=== PATIENT | male | born 1965 | race Caucasian/White ===

== ENCOUNTER 2025-02-21 20:52 | Inpatient (IN) | payer MEDICAID, OTHER ==
[~2025-02-21] VITALS: Ht 176.5 cm; Wt 103.1 kg
[2025-02-21 20:58] VITALS: PULSE 59; RESP 15; O2SAT 98
[2025-02-21] MEDS: CLOPIDOGREL BISULFATE 75 MG TAB PO ONE (21:07)
[2025-02-21] MEDS: ASPirin 325 MG TAB PO ONE (21:07)
[2025-02-21] MEDS: HEPARIN SODIUM (PORCINE) 5000 UNITS/ML 1ML VIAL IV ONE ×2 (21:07→21:15)
--- NOTE | 2025-02-21 21:07 | ED.PDOC ---
HPI Comments 59-year-old male with no reported PMHx brought in by EMS presents with a chief complaint of STEMI. Per EMS, patient was sitting playing poker with friends when he had sudden onset of diaphoresis, paleness, and lethargy. Patient states that he then also had left sided chest pain that radiated to his back, left shoulder, and down his left arm. Patient describes pain as sharp/heaviness that he rates a 10/10. EMS gave patient 324 ASA and also did a 12-lead EKG that showed STEMI. Patient arrived at ER and had an initial EKG that showed ST elevation and depressions which was then sent to on-call STEMI doctor whom confirmed that it was a CODE STEMI. Patient is alert at this time and able to speak in full complete sentences at this time. Chief Complaint: Chest Pain Time Seen by MD: 20:51 Reviewed Notes: General Claims Agent Notes, Medications, Allergies Allergies: Coded Allergies: NO KNOWN ALLERGIES (Unverified , 02/21/25) Home Meds No Active Prescriptions or Reported Meds Information Source: Patient, Emergency Med Personnel Mode of Arrival: EMS Severity: Moderate Timing: Minutes Duration: Since onset Prehospital treatment: 12 Lead EKG, ASA Location: Chest (L) Radiation: Back, Shoulder (L), Arm (L) Quality: Sharp Onset: At Rest Cardiac Risk Factors: Family History PE Risk Factors: None History of: None Associated Signs and Symptoms: Diaphoresis Past Medical History PAST MEDICAL HISTORY: Denies Surgical History: Denies all surgeries Family History Family History: Reviewed,noncontributory to illness Social History Smoker: Non-Smoker Alcohol: Occasionally Drugs: Denies Drug Use Lives In: Home Constitutional: reports: sweats, others (LETHARGY); denies: chills, diaphoresis, fatigue, fever, malaise, weakness EENTM: denies: blurred vision, double vision, ear bleeding, ear discharge, ear drainage, ear pain, ear ringing, eye pain, eye redness, hearing loss, mouth pain, mouth swelling, nasal discharge, nose bleeding, nose congestion, nose pain, photophobia, tearing, throat pain, throat swelling, voice changes, others Respiratory: denies: cough, hemoptysis, orthopnea, SOB at rest, shortness of breath, SOB with excertion, stridor, wheezing, others Cardiovascular: reports: chest pain, diaphoresis; denies: dizzy spells, Dyspnea on exertion, edema, irregular heart beat, left arm pain, lightheadedness, palpitations, PND, syncope, others Gastrointestinal: denies: abdomen distended, abdominal pain, blood streaked bowels, constipated, diarrhea, dysphagia, difficulty swallowing, hematemesis, melena, nausea, poor appetite, poor fluid intake, rectal bleeding, rectal pain, vomiting, others Genitourinary: denies: burning, dysuria, flank pain, frequency, hematuria, incontinence, penile discharge, penile sore, pain, testicle pain, testicle swelling, urgency, others Neurological: denies: dizziness, fainting, headache, left sided numbness, left sided weakness, numbness, paresthesia, pre-existing deficit, right sided numbness, right sided weakness, seizure, speech problems, tingling, tremors, weakness, others Musculoskeletal: denies: back pain, gout, joint pain, joint swelling, muscle pain, muscle stiffness, neck pain, others Integumetry: denies: bruises, change in color, change in hair/nails, dryness, laceration, lesions, lumps, rash, wounds, others Allergic/Immunocompromised: denies: Difficulty Healing, Frequent Infections, Hives, Itching, others Hematologic/Lymphatic: denies: anemia, blood clots, easy bleeding, easy bruising, swollen glands, others Endocrine: denies: excessive hunger, excessive sweating, excessive thirst, excessive urination, flushing, intolerance to cold, intolerance to heat, unexplained weight gain, unexplained weight loss, others Psychiatric: denies: anxiety, bipolar disorder, depression, hopeless, panic disorder, schizophrenia, sleepless, suicidal, others All Other Systems: Reviewed and Negative Physical Exam General Appearance: No Apparent Distress, Normal HEENT: Normal ENT Inspection, Pharynx Normal, TMs Normal Neck: Full Range of Motion, Non-Tender, Normal, Normal Inspection Respiratory: Chest Non-Tender, Lungs Clear, No Accessory Muscle Use, No Respi ratory Distress, Normal Breath Sounds Cardiovascular: No Edema, No JVD, No Murmur, No Gallop, Normal Peripheral Pulses, Regular Rate/Rhythm Breast Exam: Deferred Gastrointestinal: No Organomegaly, Non Tender, No Pulsatile Mass, Normal Bowel Sounds, Soft Genitalia: Deferred Pelvic: Deferred Rectal: Deferred Extremities: No calf tenderness, Normal capillary refill, Normal inspection, Normal range of motion, Non-tender, No pedal edema Musculoskeletal : Apperance: Normal Neurologic: Alert, drywall sprayer II-XII nml as Tested, No Motor Deficits, Normal Affect, Normal Mood, No Sensory Deficits Cerebellar Function: Normal Reflexes: Normal Skin: Dry, Normal Color, Warm Lymphatic: No Adenopathy Was a procedure done? Was a procedure done?: No CP Differential Dx Differential Diagnosis: A-fib, A-Flutter, Electrolyte Disorder, MAT, AR, Renal Failure, Torsades De Pointes, Ventricular Dysrhythmia, V-Fib, Other X-Ray, Labs, Meds, VS Vital Signs Date Time Temp Pulse Resp B/P (MAP) Pulse Ox O2 Delivery O2 Flow Rate FiO2 02/21/25 21:06 59 02/21/25 20:58 59 02/21/25 20:58 98.1 59 15 149/75 (99) 98 98.1 02/21/25 20:58 59 15 98 Nasal Cannula* 2 28 02/21/25 20:52 98.1 59 16 144/78 (100) 97 98.1 Lab Test 02/21/25 20:59 Range/Units White Blood Count 12.6 H 4.4-10.8 10^3/uL Red Blood Count 4.82 4.5-5.90 10^6/uL Hemoglobin 14.7 13.5-17.5 g/dL Hematocrit 45.5 41.0-53.0 % Mean Corpuscular Volume 94.3 80.0-100.0 fL Mean Corpuscular Hemoglobin 30.5 28.0-32.0 pg Mean Corpuscular Hemoglobin Concent 32.3 32.0-36.0 g/dL Red Cell Distribution Width 14.8 H 11.8-14.3 % Platelet Count 284 140-450 10^3/uL Mean Platelet Volume 7.8 6.9-10.8 fL Neutrophils (%) (Auto) 67.7 37.0-80.0 % Lymphocytes (%) (Auto) 19.9 10.0-50.0 % Monocytes (%) (Auto) 9.0 0.0-12.0 % Eosinophils (%) (Auto) 2.4 0.0-7.0 % Basophils (%) (Auto) 1.0 0.0-2.0 % Neutrophils # (Auto) 8.6 1.6-8.6 10 ^3/uL Lymphocytes # (Auto) 2.5 0.4-5.4 10 ^3/uL Monocytes # (Auto) 1.1 0-1.3 10 ^3/uL Eosinophils # (Auto) 0.3 0-0.8 10 ^3/uL Basophils # (Auto) 0.1 0-0.2 10 ^3/uL Nucleated Red Blood Cells 0.1 % Prothrombin Time 11.4 9.3-11.8 sec Prothrombin Time INR 1.08 0.9-1.15 Activated Partial Thromboplast Time 24.0 L 24.5-34.5 SEC Sodium Level 140 136-145 mmol/L Potassium Level 3.5 3.5-5.1 mmol/L Chloride Level 107 98-107 mmol/L Carbon Dioxide Level 25 20-31 mmol/L Anion Gap 8 5-15 Blood Urea Nitrogen 17 9-23 mg/dL Creatinine 1.16 0.700-1.30 mg/dL Glomerular Filtration Rate Calc 72 >90 mL/min BUN/Creatinine Ratio 14.7 10.0-20.0 Serum Glucose 136 H 74-106 mg/dL Calcium Level 10.4 8.7-10.4 mg/dL Magnesium Level 2.0 1.6-2.6 mg/dL Total Bilirubin 0.3 0.2-1.0 mg/dL Aspartate Amino Transferase (AST) 16 13-40 U/L Alanine Aminotransferase (ALT) 19 7-40 U/L Alkaline Phosphatase 105 46-116 U/L Troponin I High Sensitivity 161 *H </=54 ng/L Total Protein 7.5 5.7-8.2 g/dL Albumin 4.8 3.2-4.8 g/dL Current Medications Medications (Trade) Dose Ordered Sig/Philip Route Start Time Stop Time Status Last Admin Heparin Sodium (Porcine) 5,000 units ONCE ONCE IV 02/21/25 21:15 02/21/25 21:16 DC 02/21/25 21:07 Clopidogrel Bisulfate (Plavix) 300 mg ONCE ONCE PO 02/21/25 21:15 02/21/25 21:16 DC 02/21/25 21:07 Time of 1ST Reevaluation: 21:21 Reevaluation 1ST: Unchanged Patient Education/Counseling: Diagnosis, Treatment, Prognosis Family Education/Counseling: Diagnosis, Treatment Departure 1 Departure Time of Disposition: 21:10 Impression: Primary Impression: Acute myocardial infarction Disposition: 09 ADMITTED INPATIENT Admit to: ICU Condition: Critical e-Prescriptions No Active Prescriptions or Reported Meds Comments Acute STEMI - Chest Pain Chief Complaint: Chest pain with radiation to left neck and arm History of Present Illness: 59-year-old male with no prior cardiac history who presented to the ED via EMS with chest pain. Patient reports onset of chest pain approximately 2 hours prior to arrival, occurring after exertion. The pain radiates to his left neck and left arm. EMS noted ST elevations in the inferior and lateral leads on field EC G. On arrival to the ED, patient continues to report mild chest pain. Repeat ECG in ED demonstrates significant ST elevations in the inferior and lateral leads with reciprocal ST depressions in the anterior septal leads, consistent with acute STEMI. Cardiology (Dr. Mata) has been contacted and plans to take patient for emergent cardiac catheterization. Review of Systems: Constitutional: Denies fever, chills Cardiovascular: Positive for chest pain, radiation to left neck and arm Respiratory: Not documented All other systems: Deferred due to acute presentation Social History: Prior substance abuse Imaging and Other Relevant Results: ECG: Significant ST elevations in inferior and lateral leads with reciprocal ST depressions in anterior septal leads Pre-hospital ECG: ST elevations noted in inferior and lateral leads Medical Decision Making: Summary Statement: 59-year-old male presenting with acute onset chest pain and ECG changes consistent with STEMI requiring emergent cardiac catheterization Problem List: 1. Acute ST-elevation myocardial infarction (STEMI) 2. Chest pain Differential Diagnosis: 1. Acute STEMI 2. Unstable angina 3. Acute coronary syndrome 4. Pericarditis 5. Aortic dissection ED Course: Patient presented with chest pain, ECG confirmed STEMI. Cardiology consulted, accepting for emergent cardiac catheterization. Dr. Mata to perform procedure. Assessment and Plan: 1. Acute ST-elevation myocardial infarction (STEMI) - Emergent cardiac catheterization arranged with Dr. Mata - Cardiology team activated - Appropriate pre-catheterization medications to be administered per cardiology protocol 2. Disposition: Transfer to cardiac catheterization laboratory Billing Information: ICD-10: I21.19 - ST elevation (STEMI) myocardial infarction involving other coronary artery of inferior wall ICD-10: R07.9 - Chest pain, unspecified Critical Care Note Critical Care Time?: Yes Critical care comment: Total critical care time: Approximately 36 minutes Due to a high probability of clinically significant, life threatening deterioration, the patient required my highest level of preparedness to intervene emergently and I personally spent this critical care time directly and personally managing the patient. This critical care time included obtaining a history; examining the patient; pulse oximetry; ordering and review of studies; arranging urgent treatment with development of a management plan; evaluation of patient's response to treatment; frequent reassessment; and, discussions with other providers. This critical care time was performed to assess and manage the high probability of imminent, life-threatening deterioration that could result in multi-organ failure. It was exclusive of separately billable procedures and treating other patients. Stability Stability form required: No Heart Score Heart Score: Heart Score Response (Comments) Value History Highly Suspicious [address]-Deviation 2 Age 45-64 1 Risk Factors 1 or 2 risk factors 1 Troponin N/A 0 Total 6 I personally scribed for MANNIE MORA MD ([email or web address]) on 02/21/25 at 21:07. Electronically submitted by Vahid Nichols ([email or web address]). MANNIE MORA MD Feb 21, 2025 21:07
[2025-02-21] MEDS: ANGIOMAX 250 MG VIAL IV ONE (21:20)
[2025-02-21] MEDS: HEPARIN SODIUM (PORCINE) 5000 UNITS/ML 1ML VIAL ONE (21:21)
[2025-02-21] MEDS: VERAPAMIL 2.5MG/ML INJ 2ML VIAL IV ONE (21:21)
[2025-02-21] MEDS: fentaNYL CITRATE 100 MCG/2 ML VL ONE (21:22)
[2025-02-21] MEDS: SODIUM CHL 0.9% 50 ML ONE (21:22)
[2025-02-21] MEDS: LIDOCAINE 2%HCL (LOCAL ANESTH.) INJ 20ML MDV ONE (21:22)
[2025-02-21] MEDS: MIDAZOLAM HCL 2MG/2ML 2ml VIAL (1mg/ml) ONE (21:22)
[2025-02-21] MEDS: IODIXANOL 320MG/ML 100ML BTL IV ONE (21:29)
[2025-02-21] MEDS: HEPARIN IN NS 1000Units/500mL 1,500 ML ONE (21:29)
--- NOTE | 2025-02-21 21:37 | DVH ---
INDICATION: STEMI TECHNIQUE: Frontal view of the chest. COMPARISON: None FINDINGS: . The heart and mediastinal contours are grossly unremarkable. There is no evidence of pleural disea se. The lungs are clear. The bony structures of the chest are intact without fracture. IMPRESSION: 1. No evidence of acute disease.
[2025-02-21 21:38] LABS: Basophils # (auto) 0.1 10 ^3/uL (0-0.2); Eosinophils # (auto) 0.3 10 ^3/uL (0-0.8); Eosinophils % (auto) 2.4 % (0.0-7.0); Hematocrit 45.5 % (41.0-53.0); Hemoglobin 14.7 g/dL (13.5-17.5); Lymphocytes # (auto) 2.5 10 ^3/uL (0.4-5.4); Lymphocytes % (auto) 19.9 % (10.0-50.0); Mean Corpuscular Hemoglobin 30.5 pg (28.0-32.0); Mean Corpuscular Hgb Conc. 32.3 g/dL (32.0-36.0); Mean Corpuscular Volume 94.3 fL (80.0-100.0); Monocytes # (auto) 1.1 10 ^3/uL (0-1.3); Neutrophils # (auto) 8.6 10 ^3/uL (1.6-8.6); Neutrophils % (auto) 67.7 % (37.0-80.0); Nucleated Red Blood Cells % 0.1 %; Platelet Count (auto) 284 10^3/uL (140-450); Red Blood Cells 4.82 10^6/uL (4.5-5.90); Red Cell Distribution Width 14.8 % (11.8-14.3); White Blood Cell 12.6 10^3/uL (4.4-10.8)
[2025-02-21 21:40] LABS: Alanine Aminotransferase 19 U/L (7-40); Albumin 4.8 g/dL (3.2-4.8); Alkaline Phosphatase 105 U/L (46-116); Anion Gap 8 (5-15); Aspartate Aminotransferase 16 U/L (13-40); BUN/Creatinine Ratio 14.7 (10.0-20.0); Blood Urea Nitrogen 17 mg/dL (9-23); Calcium 10.4 mg/dL (8.7-10.4); Carbon Dioxide 25 mmol/L (20-31); Chloride 107 mmol/L (98-107); Potassium 3.5 mmol/L (3.5-5.1); Sodium 140 mmol/L (136-145); Total Protein 7.5 g/dL (5.7-8.2)
[2025-02-21 21:41] LABS: Bilirubin, Total 0.3 mg/dL (0.2-1.0); Glucose 136 mg/dL (74-106)
[2025-02-21 21:57] LABS: INR 1.08 (0.9-1.15); Prothrombin Time 11.4 sec (9.3-11.8)
[2025-02-21] MEDS: SODIUM CHLOR 0.9% PF (SALINE LOCK) 10ML VIAL/SYR IV SCH (22:00)
[2025-02-21] MEDS ORDERED: NITROGLYCERIN 0.4 MG SL TAB SL PRN (22:15)
[2025-02-21] MEDS ORDERED: MORPHINE SULFATE INJ 2 MG/ml SYRG IV PRN (22:15)
--- NOTE | 2025-02-21 22:16 | DVHINCON2 ---
Date Seen: Feb 21, [address] Barraza Reason for Consultation Acute [place] History of Present Illness 59-year-old gentleman presents with a history of chest pain that started at approximately 7:20 a.m.. He states that he disease substernal pressure-like gastric reflux but it was associated with back pain and shortness of breath. He was noted to have ST segment elevations in the inferior leads. Cardiac evalu ation was then requested. A code STEMI was called. Patient denies any previous history of coronary artery disease. He has a history of shortness of breath on exertion. Past Medical History Patient has a history of hernia surgery. No history of hypertension and hyperlipidemia. Past Surgical History Past history of hernia surgery. Allergies: Coded Allergies: NO KNOWN ALLERGIES (Unverified , 02/21/25) Current Medications Current Medications Medications (Trade) Dose Ordered Sig/Philpi Route PRN Reason Start Time Stop Time Status Last Admin Sodium Chloride (Saline Lock Ns) 10 ml Q8HR IV 02/21/25 22:00 Review of Systems Review of systems from a constitutional standpoint negative. Cardiac and respiratory negative. GI negative. Hematological and oncological negative. Vital Signs Vital Signs Date Time Temp Pulse Resp B/P (MAP) Pulse Ox O2 Delivery O2 Flow Rate FiO2 02/21/25 21:06 59 02/21/25 20:58 98.1 15 149/75 (99) 98 98.1 02/21/25 20:58 Nasal Cannula* 2 28 Physical Exam Physical examination is awake and responsive no acute distress he has moderate pain. Non diaphoretic. HEENT examination is otherwise unremarkable artery well hydrated. There is no jugular distention no bruits. Lungs reveal good air entry no rales or rhonchi. Heart exam reveals regular S1-S2 soft S4. Abdominal examination is unremarkable. Extremities reveal adequate perfusion without clubbing cyanosis no edema. Neurologically intact. Integumentary is otherwise normal. Labs/Diagnostic Data Labs Test 02/21/25 20:59 Range/Units White Blood Count 12.6 H 4.4-10.8 10^3/uL Red Blood Count 4.82 4.5-5.90 10^6/uL Hemoglobin 14.7 13.5-17.5 g/dL Hematocrit 45.5 41.0-53.0 % Mean Corpuscular Volume 94.3 80.0-100.0 fL Mean Corpuscular Hemoglobin 30.5 28.0-32.0 pg Mean Corpuscular Hemoglobin Concent 32.3 32.0-36.0 g/dL Red Cell Distribution Width 14.8 H 11.8-14.3 % Platelet Count 284 140-450 10^3/uL Mean Platelet Volume 7.8 6.9-10.8 fL Neutrophils (%) (Auto) 67.7 37.0-80.0 % Lymphocytes (%) (Auto) 19.9 10.0-50.0 % Monocytes (%) (Auto) 9.0 0.0-12.0 % Eosinophils (%) (Auto) 2.4 0.0-7.0 % Basophils (%) (Auto) 1.0 0.0-2.0 % Neutrophils # (Auto) 8.6 1.6-8.6 10 ^3/uL Lymphocytes # (Auto) 2.5 0.4-5.4 10 ^3/uL Monocytes # (Auto) 1.1 0-1.3 10 ^3/uL Eosinophils # (Auto) 0.3 0-0.8 10 ^3/uL Basophils # (Auto) 0.1 0-0.2 10 ^3/uL Nucleated Red Blood Cells 0.1 % Sodium Level 140 136-145 mmol/L Potassium Level 3.5 3.5-5.1 mmol/L Chloride Level 107 98-107 mmol/L Carbon Dioxide Level 25 20-31 mmol/L Anion Gap 8 5-15 Blood Urea Nitrogen 17 9-23 mg/dL Creatinine 1.16 0.700-1.30 mg/dL Glomerular Filtration Rate Calc 72 >90 mL/min BUN/Creatinine Ratio 14.7 10.0-20.0 Serum Glucose 136 H 74-106 mg/dL Calcium Level 10.4 8.7-10.4 mg/dL Magnesium Level 2.0 1.6-2.6 mg/dL Total Bilirubin 0.3 0.2-1.0 mg/dL Aspartate Amino Transferase (AST) 16 13-40 U/L Alanine Aminotransferase (ALT) 19 7-40 U/L Alkaline Phosphatase 105 46-116 U/L Troponin I High Sensitivity 161 *H </=54 ng/L Total Protein 7.5 5.7-8.2 g/dL Albumin 4.8 3.2-4.8 g/dL Assessment Acute ST-elevation myocardial infarction in evolution. History of hypertension. Hernia surgery. Plan/Recommendation Code STEMI has been called. Patient will be taken to the cardiac catheterization laboratory urgently for interventional therapy. Plan discussed with: Patient, Spouse NYHA Physical activity limitations: Class2(Slight)fatigue,sob Date of Service: Feb 21, 2025 Billing Provider: JOVANI UCI Sr., MD Cardiology Common Codes: 05998-OCOGLGX INP/OBS CARE (High) Cardiology Procedure Codes: 66621 -PTCA W/STENT PLACEMENT, 87228-ABQA FOR STEMI W/STENT JOVANI CUI Sr., MD Feb 21, 2025 22:16
--- NOTE | 2025-02-21 22:24 | DVHOP2 ---
Operative Report - 2 Report Details Date: 02/21/25 Preop Diagnosis: STEMI Postop Diagnosis: Successful PTCA and stenting of obtuse marginal branch Surgeon: Jovani Mata MD Anesthesiologist: Conscious sedation Anesthesia: Mac, Local Implant: 3.5 by 18 mm santosh [place] Medtronic drug-eluting stent Consent: The patient was informed of the risks and benefits of the procedure. These include but are not limited to complications of anesthesia, postoperative infection, incomplete relief of symptoms, recurrence of symptoms, damage to blood vessels, nerves and tendons, deep venous thrombosis, pulmonary embolism and possible need for repeat surgery in the future. Complications: No complications Estimated Blood Loss: 2 cc Findings: Obtuse marginal branch occlusion cardiomyopathy. Dilated left ventricle. EF of 40%. Indications for Surgery: STEMI Name of Procedure Performed Bilateral cine coronary angiography. Left ventriculography. PTCA and stenting of circumflex marginal branch Procedure Details Procedure Details: Prior local anesthesia with 2% lidocaine to the right wrist and full informed consent obtained the patient was prepped and draped in the usual fashion followed by placement of a six Prydeinig sheath into the radial artery and an EBU guide 3.5 in size was then placed into the radial artery and used for ventriculography and cannulation of both right and left coronary ostia. No complications. Hemodynamics Aortic blood pressure was 130/70. End-diastolic pressure was 21. There was no gradient across the aortic valve on pullback. Coronary anatomy: The RCA is a large dominant vessel it is normal in its proximal mid and distal segments. PDA and posterolateral branches are normal. Left main is large and normal. Left anterior descending is a large vessel it is normal in its proximal mid and distal segments two small diagonals proximally and a larger diagonal at its midportion is normal. Circumflex is large. There are three obtuse marginal branches. The 3rd large obtuse marginal branch/posterolateral is 100% occluded. Ventriculography in the MCKINNEY projection reveals an EF of 40% with global hypokinesis especially of the inferior lateral wall. Angioplasty was performed for which a Specter wire was placed within the three five EBU and into the obtuse marginal branch. Pre dilatation with a 2.5 mm euphoria balloon. Stenting was performed with a Medtronic santosh for anterior 3.5 x 18 mm stent. Deployed at 13 atmospheres. Who has excellent antegrade flow without thrombus formation and/or dissection. Impression: Elevated left ventricular end-diastolic pressure at rest. Decreased left ventricular ejection fraction. Single-vessel coronary artery disease involving the obtuse marginal branch of the circumflex. Status post STEMI. Recommendations: Dual antiplatelet therapy. Lipid-lowering therapy. Blood pressure control. Risk factor modification to continue. Condition Good Disposition Still a Patient Date of Service: Feb 21, 2025 Billing Provider: JOVANI MATA Sr., MD Cardiology Common Codes: 69970-ZADFJRY INP/OBS CARE (High) Cardiology Procedure Codes: 13780 -PTCA W/STENT PLACEMENT, 40539-GLHA FOR STEMI W/STENT JOVANI MATA Sr., MD Feb 21, 2025 22:24
[2025-02-21 22:25] VITALS: BP 148/77; PULSE 68; RESP 22; TEMP 97; O2SAT 94
[2025-02-21 22:40] VITALS: BP 141/79; PULSE 69; RESP 22; O2SAT 93
[2025-02-21 22:55] VITALS: BP 145/80; PULSE 67; RESP 20; O2SAT 93
[2025-02-21 23:10] VITALS: BP 144/80; PULSE 70; RESP 20; O2SAT 93
[2025-02-22] MEDS: ATORVASTATIN 20 MG TAB PO ONE (00:11)
[2025-02-22] MEDS: ACETAMINOPHEN 500 MG TAB or CAP PO SCH (00:11)
[2025-02-22 00:27] VITALS: PULSE 76; RESP 17; O2SAT 94
[2025-02-22 05:00] VITALS: BP 145/74; PULSE 72; RESP 18; TEMP 98; O2SAT 97
[2025-02-22 07:21] LABS: Basophils # (auto) 0.1 10 ^3/uL (0-0.2); Basophils % (auto) 0.4 % (0.0-2.0); Eosinophils # (auto) 0.1 10 ^3/uL (0-0.8); Eosinophils % (auto) 0.6 % (0.0-7.0); Hematocrit 44.4 % (41.0-53.0); Hemoglobin 14.8 g/dL (13.5-17.5); Lymphocytes # (auto) 1.4 10 ^3/uL (0.4-5.4); Lymphocytes % (auto) 11.7 % (10.0-50.0); Mean Corpuscular Hgb Conc. 33.4 g/dL (32.0-36.0); Monocytes # (auto) 1.1 10 ^3/uL (0-1.3); Monocytes % (auto) 9.1 % (0.0-12.0); Neutrophils # (auto) 9.4 10 ^3/uL (1.6-8.6); Neutrophils % (auto) 78.2 % (37.0-80.0); Nucleated Red Blood Cells % 0.1 %; Platelet Count (auto) 243 10^3/uL (140-450); Red Blood Cells 4.77 10^6/uL (4.5-5.90); Red Cell Distribution Width 14.6 % (11.8-14.3)
[2025-02-22 08:00] VITALS: PULSE 68
[2025-02-22 08:44] LABS: Albumin 4.6 g/dL (3.2-4.8); Alkaline Phosphatase 107 U/L (46-116); Anion Gap 8 (5-15); Bilirubin, Total 0.4 mg/dL (0.2-1.0); Blood Urea Nitrogen 16 mg/dL (9-23); CRP High Sensitivity 0.49 mg/dL (<1.0); Carbon Dioxide 21 mmol/L (20-31); Cholesterol 144 mg/dL (< 200); LDL Cholesterol 94 mg/dL (< 100); Potassium 4.1 mmol/L (3.5-5.1); Sodium 138 mmol/L (136-145); Total Protein 7.1 g/dL (5.7-8.2); Triglycerides 70 mg/dL (< 150)
[2025-02-22 08:45] LABS: Alanine Aminotransferase 50 U/L (7-40); Aspartate Aminotransferase 299 U/L (13-40); Chloride 109 mmol/L (98-107); Glucose 115 mg/dL (74-106); HDL Cholesterol 38 mg/dL (40-59)
[2025-02-22 09:00] VITALS: BP 147/77; PULSE 68; RESP 20; TEMP 97.4; O2SAT 96
[2025-02-22] MEDS: PANTOPRAZOLE 40 MG TAB PO SCH (10:00)
[2025-02-22] MEDS: CLOPIDOGREL BISULFATE 75 MG TAB PO SCH (10:00)
[2025-02-22] MEDS: CARVEDILOL 3.125 MG TAB PO SCH (10:01)
[2025-02-22] MEDS: LISINOPRIL 5 MG TAB PO SCH (10:01)
[2025-02-22] MEDS: ASPirin 81 mg TAB PO SCH (10:01)
[2025-02-22 13:00] VITALS: BP 142/73; PULSE 63; RESP 20; TEMP 97.4; O2SAT 96
--- NOTE | 2025-02-22 15:12 | DVHPN2 ---
Subjective Patient denies any pain. Patient states that he wants his paperwork to leave today. States that we are not doing anything for him. Reviewed: Care Plan, H&P, Labs, Medications, Previous Orders Changes from previous H/P or p: No Changes General: Per HPI Objective Vitals Vital Signs Date Time Temp Pulse Resp B/P (MAP) Pulse Ox O2 Delivery O2 Flow Rate FiO2 02/22/25 13:00 97.4 63 20 142/73 (96) 96 97.4 02/22/25 08:00 Room Air* 0 21 Intake/Output Intake and Output 02/22/25 07:00 Intake Total 250 ml Balance 250 ml Intake Oral 250 ml # Voids 2 # Bowel Movements 1 General Appearance: Alert, Oriented X3, Cooperative HEENT: Atraumatic, PERRLA Lungs: Clear to auscultation, Normal air movement Cardiovascular: Normal S1, Normal S2 Musculoskeletal: Normal sensory function, Normal motor function Neuro: Normal gait, Normal speech Skin: Dry, Intact Psych/Mental Status: Mental status NL, Mood NL (Agitated) Medications Current Medications Medications Dose Ordered Sig/Philip Route Start Time Stop Time Status Last Admin Dose Admin Sodium Chloride 10 ml Q8HR IV 02/21/25 22:00 02/22/25 13:49 10 ML Nitroglycerin 0.4 mg Q5MINP PRN SL 02/21/25 22:15 Morphine Sulfate 2 mg Q30M PRN IV 02/21/25 22:15 Atorvastatin Calcium 40 mg HS PO 02/22/25 22:00 Lisinopril 5 mg DAILY PO 02/22/25 10:00 02/22/25 10:01 5 MG Carvedilol 6.25 mg BID PO 02/22/25 10:00 02/22/25 10:01 6.25 MG Clopidogrel Bisulfate 75 mg DAILY PO 02/22/25 10:00 02/22/25 10:00 75 MG Aspirin 81 mg DAILY PO 02/22/25 10:00 02/22/25 10:01 81 MG Pantoprazole Sodium 40 mg DAILY PO 02/22/25 10:00 02/22/25 10:00 40 MG Ibuprofen 800 mg TID PRN PO 02/22/25 15:15 UNV Laboratory Results Laboratory Tests 02/22/25 06:27 Chemistry Test 02/21/25 20:59 02/22/25 06:27 Albumin 4.8 g/dL (3.2-4.8) 4.6 g/dL (3.2-4.8) Calcium Level 10.4 mg/dL (8.7-10.4) 10.0 mg/dL (8.7-10.4) Magnesium Level 2.0 mg/dL (1.6-2.6) Total Protein 7.5 g/dL (5.7-8.2) 7.1 g/dL (5.7-8.2) Coagulation Test 02/21/25 20:59 Prothrombin Time 11.4 sec (9.3-11.8) Prothrombin Time INR 1.08 (0.9-1.15) Activated Partial Thromboplast Time 24.0 SEC (24.5-34.5) L Lipid panel Test 02/22/25 06:27 Cholesterol Level 144 mg/dL (< 200) HDL Cholesterol 38 mg/dL (40-59) L Triglycerides Level 70 mg/dL (< 150) Cardiac Markers Test 02/22/25 06:27 B-Type Natriuretic Peptide 138.19 pg/mL (0-100) LFT Test 02/21/25 20:59 02/22/25 06:27 Alanine Aminotransferase (ALT) 19 U/L (7-40) 50 U/L (7-40) H Alkaline Phosphatase 105 U/L (46-116) 107 U/L (46-116) Aspartate Amino Transferase (AST) 16 U/L (13-40) 299 U/L (13-40) H Total Bilirubin 0.3 mg/dL (0.2-1.0) 0.4 mg/dL (0.2-1.0) HgA1c, TSH Test 02/22/25 06:27 Hemoglobin A1c 5.2 % A1C (<5.7) Thyroid Stimulating Hormone (TSH) 0.93 uIU/mL (0.55-4.78) Labs and/or images reviewed: Labs reviewed by me, Image(s) reviewed by me Assessment/Plan Assessment/Plan Impression: -STEMI involving obtuse marginal, status post PCI stent placement -obesity -accelerated hypertension -acute decompensated systolic heart failure with ejection fraction 40% Plan: -continue dual antiplatelet therapy -hold statin given lipid panel -continue beta-navneet, DAGO inhibitor -ibuprofen for headache -further course of care per Cardiology recommendations. Total time spent with patient discussing and formulating plan of care: 35 minutes. This medical document was created using an electronic medical record system with [employer] dictation system. Although this document has been carefully reviewed, there may still be some phonetic and typographical errors. These areas are purely typographical due to imperfections of the software programs, and do not reflect any compromise in the patient's medical care. Plan discussed with: Patient, Other (RN) My Orders Orders - LINDA SANCHEZ NP Procedure Category Date Status Time Ibuprofen Tablet PHA 02/22/25 Logged (Motrin Tablet) 15:15 * Cardiology Consult CONS 02/22/25 Transmitted 15:03 Date of Service: Feb 22, 2025 Billing Provider: LINDA SANCHEZ NP Common Visit Codes: 57735-[id number] INP/OBS CARE(HIGH) LINDA SANCHEZ NP Feb 22, 2025 15:12
[2025-02-22] MEDS ORDERED: IBUPROFEN 800 MG TAB PO PRN (15:15)
[2025-02-22] MEDS ORDERED: CLOP75TA28 PO (16:13)
[2025-02-22] MEDS ORDERED: LISI-275 PO (16:13)
[2025-02-22] MEDS ORDERED: METO25TA36 PO (16:13)
[2025-02-22] MEDS ORDERED: ASPI1TAB20 PO (16:13)
[2025-02-22] MEDS ORDERED: ATOR20TA50 PO (16:13)
--- NOTE | 2025-02-22 16:18 | DVHDS2 ---
Discharge Summary Date of Admission Feb 21, 2025 at 22:15 Date of Discharge: Feb 22, 2025 Admitting Diagnosis STEMI Labs/Diagnostic Data: Laboratory Results Test 02/22/25 06:27 02/21/25 20:59 White Blood Count 12.0 10^3/uL (4.4-10.8) Red Blood Count 4.77 10^6/uL (4.5-5.90) Hemoglobin 14.8 g/dL (13.5-17.5) Hematocrit 44.4 % (41.0-53.0) Mean Corpuscular Volume 93.0 fL (80.0-100.0) Mean Corpuscular Hemoglobin 31.0 pg (28.0-32.0) Mean Corpuscular Hemoglobin Concent 33.4 g/dL (32.0-36.0) Red Cell Distribution Width 14.6 % (11.8-14.3) Platelet Count 243 10^3/uL (140-450) Mean Platelet Volume 8.0 fL (6.9-10.8) Neutrophils (%) (Auto) 78.2 % (37.0-80.0) Lymphocytes (%) (Auto) 11.7 % (10.0-50.0) Monocytes (%) (Auto) 9.1 % (0.0-12.0) Eosinophils (%) (Auto) 0.6 % (0.0-7.0) Basophils (%) (Auto) 0.4 % (0.0-2.0) Neutrophils # (Auto) 9.4 10 ^3/uL (1.6-8.6) Lymphocytes # (Auto) 1.4 10 ^3/uL (0.4-5.4) Monocytes # (Auto) 1.1 10 ^3/uL (0-1.3) Eosinophils # (Auto) 0.1 10 ^3/uL (0-0.8) Basophils # (Auto) 0.1 10 ^3/uL (0-0.2) Nucleated Red Blood Cells 0.1 % Sodium Level 138 mmol/L (136-145) Potassium Level 4.1 mmol/L (3.5-5.1) Chloride Level 109 mmol/L (98-107) Carbon Dioxide Level 21 mmol/L (20-31) Anion Gap 8 (5-15) Blood Urea Nitrogen 16 mg/dL (9-23) Creatinine 0.94 mg/dL (0.700-1.30) Glomerular Filtration Rate Calc 92 mL/min (>90) BUN/Creatinine Ratio 17.0 (10.0-20.0) Serum Glucose 115 mg/dL (74-106) Hemoglobin A1c 5.2 % A1C (<5.7) Calcium Level 10.0 mg/dL (8.7-10.4) Total Bilirubin 0.4 mg/dL (0.2-1.0) Aspartate Amino Transferase (AST) 299 U/L (13-40) Alanine Aminotransferase (ALT) 50 U/L (7-40) Alkaline Phosphatase 107 U/L (46-116) Troponin I High Sensitivity > 55859 ng/L (</=54) C-Reactive Protein High Sensitivity 0.49 mg/dL (<1.0) B-Type Natriuretic Peptide 138.19 pg/mL (0-100) Total Protein 7.1 g/dL (5.7-8.2) Albumin 4.6 g/dL (3.2-4.8) Triglycerides Level 70 mg/dL (< 150) Cholesterol Level 144 mg/dL (< 200) LDL Cholesterol 94 mg/dL (< 100) HDL Cholesterol 38 mg/dL (40-59) Thyroid Stimulating Hormone (TSH) 0.93 uIU/mL (0.55-4.78) Prothrombin Time 11.4 sec (9.3-11.8) Prothrombin Time INR 1.08 (0.9-1.15) Activated Partial Thromboplast Time 24.0 SEC (24.5-34.5) Magnesium Level 2.0 mg/dL (1.6-2.6) Other Laboratory Tests 02/22/25 06:27 Brief Hx & Hospital Course: HPI Comments 59-year-old male with no reported PMHx brought in by EMS presents with a chief complaint of STEMI. Per EMS, patient was sitting playing poker with friends when he had sudden onset of diaphoresis, paleness, and lethargy. Patient states that he then also had left sided chest pain that radiated to his back, left shoulder, and down his left arm. Patient describes pain as sharp/heaviness that he rates a 10/10. EMS gave patient 324 ASA and also did a 12-lead EKG that showed STEMI. Patient arrived at ER and had an initial EKG that showed ST elevation and depressions which was then sent to on-call STEMI doctor whom confirmed that it was a CODE STEMI. Patient is alert at this time and able to speak in full complete sentences at this time. Course of hospitalization: Patient had emergent left heart catheterization with PTCA and stent placement to obtuse marginal which was found to be 100% occluded. Patient was left ventriculogram was found to have an ejection fraction of 40%. Patient was started on beta-navneet therapy, DAGO inhibitor, statin, as well as dual antiplatelet therapy with Plavix and aspirin. Patient was requesting to be discharged home today. Patient has been cleared by Cardiology to continue current medications and follow up as an outpatient. Further treatment for guideline directed medical therapy for heart failure can be initiated as an outpatient. Patient was instructed to follow a cardiac diet. All questions answered. Physical examination General: Alert and Oriented x3. No acute distress. Well-nourished. Obese Eyes: EOMI. Anicteric. HENT: Moist mucous membranes. Lungs: Clear to auscultation bilaterally. No accessory muscle use. Cardiovascular: Regular rate and rhythm. No murmur. No JVD. Abdomen: Soft, non-tender and non-distended. No palpable masses. Extremities: No edema. Non-tender. Skin: No rashes or lesions. Warm. Neurologic: No focal neurological deficits. CN II-XII grossly intact, but not individually tested. Psychiatric: Cooperative. Appropriate mood and affect. Total time spent with patient discussing and formulating plan of care: 35 minutes. This medical document was created using an electronic medical record system with [employer] dictation system. Although this document has been carefully reviewed, there may still be some phonetic and typographical errors. These areas are purely typographical due to imperfections of the software programs, and do not reflect any compromise in the patient's medical care. Consults/Reason for consult Cardiology: STEMI Operations or Procedures 02/21/2025: Left heart catheterization with PTCA and stent placement to obtuse marginal Condition at Discharge: Good Final Diagnosis/Problems List STEMI involving obtuse marginal branch Secondary diagnosis: -STEMI involving obtuse marginal, status post PCI stent placement -obesity -accelerated hypertension -acute decompensated systolic heart failure with ejection fraction 40% Discharge Disposition: Home Discharge Instruct/Medications Diet: Cardiac 2g Na,low cholest Activity: No Restrictions, As Tolerated Follow Up/Referral: Follow up with Cardiology in 1-2 weeks Medications: Plavix 75 mg p.o. daily Aspirin 81 mg p.o. daily Toprol-XL 25 mg p.o. daily Lisinopril 5 mg p.o. daily Atorvastatin 20 mg p.o. q.h.s. 36 Discharge Statement: "Patient was advised to return to the ER or call 911 if any headaches, dizziness, shortness of breath, chest pain, abdominal pain, bleeding, fevers, or worsening of medical condition. Patient was counseled about treatment plan, medications, possible side effects, patientverbalized understanding. All questions were answered to the best of my ability. This discharge took greater then 30 minutes in planning, reviewing documentation, counseling the patient, and discussing with other team members." ASSESSMENT ASSESSMENT Assessment STEMI involving obtuse marginal branch Date of Service: Feb 22, 2025 Billing Provider: LINDA SANCHEZ NP Common Visit Codes: 57719-HBO/OBS DISCH DAY >30min LINDA SANCHEZ NP Feb 22, 2025 16:18
--- NOTE | 2025-02-22 16:29 | DVHPN2 ---
Consult Progress Note Subjective Patient reports: No new complaints (wanting to leave) Objective vital signs Vital Sign Date Time Temp Pulse Resp B/P (MAP) Pulse Ox O2 Delivery O2 Flow Rate FiO2 02/22/25 13:00 97.4 63 20 142/73 (96) 96 97.4 02/22/25 08:00 Room Air* 0 21 Total Intake and Output 02/21/25 02/21/25 02/22/25 15:00 23:00 07:00 Intake Total 250 ml Balance 250 ml medications Current Medications Medications Dose Ordered Sig/Philip Route Start Time Stop Time Status Last Admin Dose Admin Sodium Chloride 10 ml Q8HR IV 02/21/25 22:00 02/22/25 13:49 10 ML Nitroglycerin 0.4 mg Q5MINP PRN SL 02/21/25 22:15 Morphine Sulfate 2 mg Q30M PRN IV 02/21/25 22:15 Atorvastatin Calcium 40 mg HS PO 02/22/25 22:00 Lisinopril 5 mg DAILY PO 02/22/25 10:00 02/22/25 10:01 5 MG Carvedilol 6.25 mg BID PO 02/22/25 10:00 02/22/25 10:01 6.25 MG Clopidogrel Bisulfate 75 mg DAILY PO 02/22/25 10:00 02/22/25 10:00 75 MG Aspirin 81 mg DAILY PO 02/22/25 10:00 02/22/25 10:01 81 MG Pantoprazole Sodium 40 mg DAILY PO 02/22/25 10:00 02/22/25 10:00 40 MG Ibuprofen 800 mg TID PRN PO 02/22/25 15:15 Examination: CVS:Normal (Telemetry consistent with NSR at 65 BPM. Denies any active or overnight CP.) laboratory and microbiology Laboratory Tests 02/22/25 06:27 Test 02/22/25 06:27 Range/Units Serum Glucose 115 H 74-106 mg/dL Problem List/Assessment/Plan Problem List/Assessment/Plan Assessment/plan * STEMI - s/p KRISTIE stent to 3rd large OM branch/posterolateral which was 100% occluded on 02/21/2025. Continue DAPT with Plavix and aspirin x1 year followed by lifelong aspirin. Aggressive lifestyle modifications. Continue statin. * HTN - continue on current regimen. * Acute systolic HF - EF 40% on ventriculogram. Outpatient follow up for echo as patient does not want to stay and wait. Continue carvedilol lisinopril. Outpatient titration. Case Discussed with Dr Mata. Patient seen at bedside, patient agitated wanting to go home does not want to stay in the hospital any longer. Plan of care discussed, patient to continue on DAPT with Plavix and aspirin, verbalized importance of taking medication. Discussed importance of following up with Cardiology outpatient basis, patient states he has a appointment with his primary care in less than a week and will follow up for cardiology referral. Patient made aware if starts to have any significant cardiac symptoms to return to the ER. Patient is stable for DC as long as patient has medications available to take with him. Reinforced outpatient follow up. Critical care, time spent: 38 minutes This medical document was created using an electronic medical record system with voice recognition software and computerized dictation system. Although this document has been carefully reviewed, there might still be some phonetic and typographical errors. Occasional wrong-word or ``sound-alike substitutions may have occurred due to the inherent limitations of voice recognition software. These areas are purely typographical due to imperfections of the software programs and do not reflect any compromise in the patient's medical care. Please read the chart carefully and recognize, using context, where these substitutions have occurred. Thank you for allowing me to participate in the management of this patient. The treatment plan was discussed with and agreed upon by patient/family including requesting consultants and ordering of imaging/procedures. Plan discussed with: Patient Date of Service: Feb 22, 2025 Billing Provider: MARIA FERNANDA BONNER Common Visit Codes: 57215-[id number] INP/OBS CARE(HIGH), 30443-[id number] CARE 30-74 MIN MARIA FERNANDA BONNER Feb 22, 2025 16:29
[2025-02-22 17:00] VITALS: BP 152/77; PULSE 75; RESP 20; TEMP 97.4; O2SAT 95
--- NOTE | 2025-02-22 19:12 | ECG ---
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
[2025-02-22] MEDS ORDERED: ATORVASTATIN 20 MG TAB PO SCH (22:00)
--- NOTE | 2025-02-23 06:32 | ECG ---
[facility] Test Date: 2025-02-21 Test Time: 20:56:25 Pat Name: BUBBA DOW Department: ED Room: 0248T B Gender: M Vp Site: : 1965 Requested By: MANNIE MORA Order Number: [id number] Reading MD: Virgil Mata Measurements Intervals [place] Rate: 58 P: 10 MT: 190 QRS: 28 QRSD: 97 T: 80 QT: 396 QTc: 389 Interpretive Statements Sinus rhythm Inferoposterior infarct, acute (LCx) Lateral infarct, acute Baseline wander in lead(s) I Electronically Signed On 02-23-2025 14:19:49 PDT by Virgil Mata Please click the below link to view image of tracing.
== END 2025-02-22 18:00 | disposition home or self-care (01) | DRG 174 ==
LOC: EDBD 20:52 → ER 20:52 → OVERFLOW 22:15 → TELE-EAST 23:34
PROVIDERS: ADMIT Internal Medicine; ATTEND Internal Medicine
PROC: 027034Z Dilation of Coronary Artery, One Artery with Drug-eluting Intraluminal Device, Percutaneous Approach (ICD-10-PCS; principal; 2025-02-21)
PROC: B215YZZ Fluoroscopy of Left Heart using Other Contrast (ICD-10-PCS; 2025-02-21)
PROC: B211YZZ Fluoroscopy of Multiple Coronary Arteries using Other Contrast (ICD-10-PCS; 2025-02-21)
DX: I21.09 ST elevation (STEMI) myocardial infarction involving other coronary artery of anterior wall (principal); I50.23 Acute on chronic systolic (congestive) heart failure; I42.9 Cardiomyopathy, unspecified; I25.10 Atherosclerotic heart disease of native coronary artery without angina pectoris; Z68.33 Body mass index [BMI] 33.0-33.9, adult; I21.19 ST elevation (STEMI) myocardial infarction involving other coronary artery of inferior wall; I25.2 Old myocardial infarction; K21.9 Gastro-esophageal reflux disease without esophagitis; E66.9 Obesity, unspecified; I11.0 Hypertensive heart disease with heart failure; Z95.5 Presence of coronary angioplasty implant and graft
CPT/HCPCS: 36415; 71045; 80053; 80061; 83036; 83735; 83880; 84443; 84484; 85025; 85610; 85730; 86141; 86850; 86900; 86901; 92941; 93005; 93454; 96374; 99152; 99291; C1887; G0378; J2250; Q9967